=== PATIENT | female | born 1995 | race Caucasian/White ===

== ENCOUNTER 2016-06-29 16:13 | Emergency (ER) | payer SELFPAY ==
[~2016-06-29] VITALS: Ht 165.1 cm; Wt 53.9 kg
[~2016-06-29 16:13] MED LIST: CLIN-60 PO
[2016-06-29 16:14] VITALS: BP 106/71
[2016-06-29] MEDS ORDERED: SODIUM CHLORIDE 0.9% 1,000 ML IV ONE (16:40)
[2016-06-29] MEDS ORDERED: PANTOPRAZOLE 40 MG IV ONE (16:58)
[2016-06-29] MEDS ORDERED: ONDANSETRON 2MG/ML, 2ML ONE (16:58)
[2016-06-29] MEDS ORDERED: MAALOX/HYOSCYAMINE/LIDOCAINE 45 ML BOTTLE ONE (16:58)
[2016-06-29] MEDS ORDERED: PANTOPRAZOLE 40 MG IV IVP ONE (17:00)
[2016-06-29] MEDS ORDERED: ONDANSETRON 2MG/ML, 2ML IVPush ONE (17:00)
[2016-06-29] MEDS ORDERED: MAALOX/HYOSCYAMINE/LIDOCAINE 45 ML BOTTLE PO ONE (17:00)
[2016-06-29] MEDS ORDERED: SODIUM CHLORIDE FLUSH 10ML SYR IVF ONE (17:00)
[2016-06-29 17:16] LABS: ASPARTATE AMINO TRANSFERASE 23 U/L (15-37); BLOOD UREA NITROGEN 9 mg/dL (7-18)
[2016-06-29 17:21] LABS: DIFF TOTAL CELLS COUNTED 100 CELL DIFF
[2016-06-29 17:42] LABS: ANISOCYTOSIS 1+; HYPOCHROMIA 1+; POLYCHROMASIA 1+; VERIFY COUNTS? YES
[2016-06-29 17:43] LABS: MICROCYTOSIS 1+; TARGET CELLS 1+
== END 2016-06-29 18:18 | disposition home or self-care (01) ==
LOC: ED 18:00
DX: K29.01 Acute gastritis with bleeding (principal); Z90.49 Acquired absence of other specified parts of digestive tract
CPT/HCPCS: 36415; 80053; 83690; 84703; 85025; 85610; 85730; 86677; 93005; 96361; 96374; 96375; 99285; C9113; J2405; J7030